=== PATIENT | female | born 1975 ===

== ENCOUNTER 2022-09-06 06:00 | Outpatient (RCR) | payer OTHER, SELFPAY | END 2022-09-14 23:59 | disposition home or self-care (01) | LOC: MPT 06:00 | PROVIDERS: Visit Provider Nurse Practitioner Family | DX: M54.9 Dorsalgia, unspecified (principal) | CPT/HCPCS: 97110; 97140; 97162; G0283 ==

== ENCOUNTER 2022-09-15 06:00 | Outpatient (RCR) | payer OTHER, SELFPAY | END 2022-10-12 23:59 | disposition home or self-care (01) | LOC: MPT 06:00 | PROVIDERS: Visit Provider Nurse Practitioner Family | DX: M54.9 Dorsalgia, unspecified (principal) | CPT/HCPCS: 97110; 97140; G0283 ==

== ENCOUNTER 2022-10-13 06:00 | Outpatient (RCR) | payer OTHER, SELFPAY | END 2022-11-12 23:59 | disposition home or self-care (01) | LOC: MPT 06:00 | PROVIDERS: Visit Provider Nurse Practitioner Family | DX: M54.59 Other low back pain (principal) | CPT/HCPCS: 97110; 97140; G0283 ==